=== PATIENT | male | born 1950 | race Caucasian/White ===

== ENCOUNTER → 2023-09-17 08:57 | Outpatient (REF) | payer MEDICARE, OTHER, SELFPAY ==
[2023-09-17 12:37] LABS: Glycohemoglobin (HgbA1c) 7.9 % (4.0-5.6)
== END ==
LOC: REG 08:57
PROVIDERS: ATTENDING PHYSICIAN Internal Medicine
DX: E11.9 Type 2 diabetes mellitus without complications (principal)
CPT/HCPCS: 36415; 83036

== ENCOUNTER → 2023-12-31 08:25 | Outpatient (REF) | payer MEDICARE, OTHER, SELFPAY | LOC: REG 08:25 | PROVIDERS: ATTENDING PHYSICIAN Internal Medicine | DX: E11.9 Type 2 diabetes mellitus without complications (principal) | CPT/HCPCS: 36415; 83036 ==

== ENCOUNTER → 2024-04-19 09:53 | Outpatient (REF) | payer MEDICARE, OTHER, SELFPAY ==
[2024-04-19 11:36] LABS: Albumin 4.8 g/dl (3.5-5.0); Blood Urea Nitrogen 15 mg/dl (9-20); Calcium 9.6 mg/dl (8.4-10.2); Carbon Dioxide 18 mmol/L (22-30); Chloride 104 mmol/L (98-107); Glucose 149 mg/dl (70-99); Phosphorus 3.6 mg/dl (2.5-4.5); Potassium 4.9 mmol/L (3.5-5.1); Sodium 137 mmol/L (135-145); eGFR > 60.00
[2024-04-19 12:47] LABS: Glycohemoglobin (HgbA1c) 7.1 % (4.0-5.6)
[2024-04-19 13:24] LABS: Microalbumin, Random Urine 1.1 mg/dl (0.6-1.7); Microalbumin/creatinine Ratio 12.2 mg/g
== END ==
LOC: REG 09:53
PROVIDERS: ATTENDING PHYSICIAN Internal Medicine
DX: E11.9 Type 2 diabetes mellitus without complications (principal)
CPT/HCPCS: 36415; 80069; 82043; 82570; 83036

== ENCOUNTER → 2024-09-15 07:50 | Outpatient (REF) | payer MEDICARE, OTHER, SELFPAY ==
[2024-09-15 08:26] LABS: % Basophils 0.8 % (0-2); % Eosinophils 3.9 % (0-6); % Immature Granulocytes 0.3 % (0-0.5); % Lymphocytes 31.5 % (20.5-51.1); % Monocytes 12.3 % (1.7-9.3); % Neutrophils 51.2 % (42.2-75.2); Absolute Basophils 0.1 10^3/uL (0-0.2); Absolute Eosinophils 0.3 10^3/uL (0-0.7); Absolute Lymphocytes 2.8 10^3/uL (1.2-3.4); Absolute Monocytes 1.1 10^3/uL (0.1-0.6); Absolute Neutrophils 4.5 10^3/uL (1.4-6.5); Hematocrit 44.2 % (39.0-52.0); Hemoglobin 14.9 g/dL (13.0-18.0); Mean Corp Hgb Conc. 33.7 g/dL (33.0-37.0); Mean Corpuscular Hgb 30.4 pg (27.0-31.0); Mean Corpuscular Volume 90.2 fL (80.0-94.0); Nucleated Red Blood Cells % 0 % (-); Platelet Count 272 10^3/uL (130-400); White Blood Cell Count 8.8 10^3/uL (4.8-10.8)
[2024-09-15 09:22] LABS: Glycohemoglobin (HgbA1c) 6.9 % (4.0-5.6)
[2024-09-15 09:33] LABS: ALT (SGPT) 26 U/L (0-50); AST (SGOT) 22 U/L (17-59); Albumin 4.6 g/dl (3.5-5.0); Alkaline Phosphatase 72 U/L (38-126); Blood Urea Nitrogen 16 mg/dl (9-20); Calcium 9.6 mg/dl (8.4-10.2); Carbon Dioxide 18 mmol/L (22-30); Chloride 113 mmol/L (98-107); Glucose 138 mg/dl (70-99); HDL Cholesterol 42 mg/dl; LDL Cholesterol, Calculated 112 mg/dl; Potassium 4.5 mmol/L (3.5-5.1); Sodium 141 mmol/L (135-145); Total Bilirubin 0.6 mg/dl (0.2-1.3); Total Cholesterol 184 mg/dl (50-199); Total Protein 7.8 g/dl (6.3-8.2); Triglyceride 151 mg/dl (10-149); Very Low Density Lipoprotein 30 mg/dl (0-30); eGFR > 60.00
== END ==
LOC: REG 07:50
PROVIDERS: ATTENDING PHYSICIAN Internal Medicine
DX: E11.9 Type 2 diabetes mellitus without complications (principal); E66.9 Obesity, unspecified; E78.5 Hyperlipidemia, unspecified
CPT/HCPCS: 36415; 80053; 80061; 83036; 85025

== ENCOUNTER → 2024-12-29 13:38 | Outpatient (REF) | payer MEDICARE, OTHER, SELFPAY ==
[2024-12-30 09:29] LABS: Glycohemoglobin (HgbA1c) 7.1 % (4.0-5.6)
== END ==
LOC: REG 13:38
PROVIDERS: ATTENDING PHYSICIAN Internal Medicine
DX: E11.9 Type 2 diabetes mellitus without complications (principal)
CPT/HCPCS: 36415; 83036